=== PATIENT | male | born 1980 | race Caucasian/White ===

== ENCOUNTER 2023-07-15 20:29 | Emergency (ER) | payer SELFPAY ==
[2023-07-15 20:44] VITALS: BP 156/88
[2023-07-15 21:13] LABS: % Basophils 0.2 % (0-2); % Eosinophils 1.1 % (0-6); % Immature Granulocytes 0.4 % (0-0.5); % Lymphocytes 9.4 % (20.5-51.1); % Neutrophils 76.9 % (42.2-75.2); Absolute Eosinophils 0.1 10^3/uL (0-0.7); Absolute Lymphocytes 0.8 10^3/uL (1.2-3.4); Absolute Neutrophils 6.6 10^3/uL (1.4-6.5); Hematocrit 43.3 % (39.0-52.0); Hemoglobin 15.1 g/dL (13.0-18.0); Mean Corp Hgb Conc. 34.9 g/dL (33.0-37.0); Mean Corpuscular Hgb 30.6 pg (27.0-31.0); Mean Corpuscular Volume 87.8 fL (80.0-94.0); Nucleated Red Blood Cells % 0 % (-); Platelet Count 200 10^3/uL (130-400); Red Blood Cell Count 4.93 10^6/uL (4.70-6.10); Red Cell Dist. Width 11.7 % (11.5-14.5); White Blood Cell Count 8.6 10^3/uL (4.8-10.8)
[2023-07-15 21:31] LABS: ALT (SGPT) 39 U/L (0-50); AST (SGOT) 36 U/L (17-59); Albumin 4.7 g/dl (3.5-5.0); Alkaline Phosphatase 98 U/L (38-126); Blood Urea Nitrogen 23 mg/dl (9-20); Calcium 9.9 mg/dl (8.4-10.2); Carbon Dioxide 24 mmol/L (22-30); Chloride 101 mmol/L (98-107); Glucose 108 mg/dl (70-99); Sodium 137 mmol/L (135-145); Total Protein 7.9 g/dl (6.3-8.2); eGFR > 60.00
[2023-07-15 21:44] LABS: COVID-19 Antigen Negative (Negative)
[2023-07-15 22:59] VITALS: BP 133/80
[2023-07-15 23:00] VITALS: BP 131/74
[2023-07-15 23:05] LABS: Urine Albumin Negative (Neg - Trace); Urine Bilirubin Negative (Negative); Urine Character Clear (Clear); Urine Color Yellow; Urine Glucose Negative (Negative); Urine Ketone Negative (Negative); Urine Leukocyte Negative (Negative); Urine Nitrite Negative (Negative); Urine Occult Blood Negative (Negative); Urine Specific Gravity 1.015 (<1.030); Urine Urobilinogen 1+ (Neg - 1+)
--- NOTE | 2023-07-15 23:20 | ED.GENMED ---
History of Present Illness
General
Chief Complaint: Fever
Source: patient
Exam Limitations: none
Time Seen by Provider: 07/15/23 22:46
Travel History
Have you had any contact with someone who has COVID-19?: No
Do you have any symptoms of coronavirus? Fever > 100 degrees, chills, cough, shortness of breath, sore throat, loss of taste or smell, muscle aches, or headache?: No
History of Present Illness
History of Present Illness:
This is a 42 year old male that comes in with c/o fever. Sates that he had cut the grass and then he started with sneezing. States that he thought it was from doing the lawn. States that yesterday he then started with a cough and his boss told him
to go home and go to . States that he went to but they would not see him since he didn't have insurance. State that tonight he had fever with chills so he came here. States that he had SOB and some chest discomfort when he coughed. States that
he also has a headache. Denies any chest pain, abd pain, nausea, vomiting, diarrhea, dizziness, urinary burning.
Past History
Past History
ED Past Medical History: Other (Headaches, PNA)
ED Past Surgical History: None
Social History
Tobacco: Smoker
Alcohol: Occasional
Drug: None
Personal: Single
Living: with family
Employment: Employed
Family History
Family History: Other (Noncontributory)
Review of Systems
Review of Systems
All Other Systems: ROS reviewed and negative except as documented in HPI and ROS
Constitutional: Reports fever and chills
EENT: Reports no symptoms
Respiratory: Reports cough and trouble breathing
Cardiac: Denies chest pain
ABD/GI: Reports no symptoms; Denies abdominal pain, nausea, vomiting or diarrhea
: Reports no symptoms; Denies dysuria, frequency or urgency
Musculoskeletal: Reports no symptoms
Skin: Reports no symptoms
Neurological: Reports headache; Denies dizzy
Psychiatric: Reports no symptoms
Phy Exam
General Physical Exam
General Presentation: no apparent distress
General age: appears stated age
General Skin: warm and dry
General Habitus: normal
General Mental: alert
General Hydration: dry mucous membranes
ENT Exam
ENT Exam: TM's normal, pharynx normal and neck supple
Eye Exam
Eye Exam: EOMI
Cardiovascular Exam
Cardiovascular Exam: regular rate/rhythm, no edema, no murmur and normal peripheral pulses
Pulmonary Exam
Pulmonary Exam: lungs clear, no respiratory distress, no rales, chest non tender, no crackles, no rhonchi, no wheezing and other (Course cough noted)
Gastrointestinal Exam
Gastrointestinal Exam: normal bowel sounds, non tender, soft, no organomegaly, no pulsatile mass and non distended
Musculoskeletal Exam
Musculoskeletal Exam: full ROM and no edema
Skin Exam
Skin Exam: normal color, warm/dry, no rash and no petechia
Psychiatric Exam
Psychiatric Exam: normal mood/affect
Course
Orders/Labs/Results
Orders:
Orders
07/15/23 20:43
Electrocardiogram (*1) Urgent
Reason for Study: Other
Other Reason for Exam: Possible Sepsis
EKG- Treatment ONCE
07/15/23 20:46
Chest [CR Chest - 2 Views ] Urgent
Comment:
Reason For Exam: cough
07/15/23 21:04
COVID-19 Antigen Urgent
Source: Nasal Swab
Complete Blood Count/With Diff Urgent
Comprehensive Metabolic Panel Urgent
Lactic Acid Q4H
Comment: ON ICE, CANCEL 2ND ORDER IF FIRST LACTIC ACID LEVEL <2
Blood Culture Q30M
NEYDA Source: Blood/Venous
Specimen Description:
Comment: FROM 2 SEPARATE SITES
Blood Culture Q30M
NEYDA Source: Blood/Venous
Specimen Description:
Comment: FROM 2 SEPARATE SITES
INF RAPID [Influenza A+B Rapid Molecular] Urgent
NEYDA Source: Nasal Swab
Specimen Description:
07/15/23 22:55
Urinalysis Reflex To Culture Urgent
Date Specimen was Collected: 07/15/23
Time Specimen was Collected: 20:43
07/15/23 23:19
0.9% Sodium Chloride 1000 ml [Nss] 1,000 ml IV BOLUS
Acetaminophen [Tylenol] 1,000 mg PO NOW STA
07/16/23 00:22
Doxycycline [Vibramycin] 100 mg PO NOW STA
07/16/23 00:45
Lactic Acid Q4H
Comment: ON ICE, CANCEL 2ND ORDER IF FIRST LACTIC ACID LEVEL <2
Abnormal Lab Results
07/15/23
21:04
Absolute Neuts (auto) 6.6 H 10^3/uL
(1.4-6.5)
Absolute Lymphs (auto) 0.8 L 10^3/uL
(1.2-3.4)
Absolute Monos (auto) 1.0 H 10^3/uL
(0.1-0.6)
Neutrophils % 76.9 H %
(42.2-75.2)
Lymphocytes % 9.4 L %
(20.5-51.1)
Monocytes % 12.0 H %
(1.7-9.3)
BUN 23 H mg/dl
(9-20)
Glucose 108 H mg/dl
(70-99)
07/15/23 21:04
07/15/23 21:04
Dehydration. Glucose nonfasting. Lactic acid 2.0, COVID and Influenza negative, Urine negative for infection.
Vital Signs
Initial and Last Documented VS:
Initial Vital Signs
Temp Pulse Resp BP Pulse Ox
101.6 F H 106 22 156/88 98
07/15/23 20:44 07/15/23 20:44 07/15/23 20:44 07/15/23 20:44 07/15/23 20:44
Last Documented Vital Signs
Temp Pulse Resp BP Pulse Ox
101 F H 98 37 131/74 98
07/15/23 23:05 07/15/23 23:00 07/15/23 22:47 07/15/23 23:00 07/15/23 20:44
MDM/Problems Addressed
Differential Diagnosis Includes:
PNA, Viral illness
MDM/Problems Addressed:
This is a 42 year old male that comes in with c/o fever and cough. States that this started yesterday and his boss sent him home. Told him to go to and they would not see patient since he didn't have any insurance. States that he has a fever
tonight with a cough.
Will check labs. Give IV fluids and Tylenol for his fever. Will get chest x-ray.
BACK INTO SEE PATIENT. Explained that on the x-ray it appears that there is a right lower lobe Pneumonia. Will place patient on Doxycycline and have him follow up with the family doctor. Patient to increase his water intake to 8-8oz glasses daily.
Tylenol or Aleve as needed for any fever. Return with any concerns.
Chronic conditions affecting care:
NA
Acute Exacerbation and/or Progression of Chronic Illness:
NA
*Pulse Oximetry
Patient hypoxic: no
*EKG
Heart Rate: 93
Rate: normal
Rhythm: sinus
[place]: normal axis
Interval: normal interval
QRS Pattern: normal QRS
Ischemia: no ischemia
*Tow Feeder Interpretation
Rate: normal
Heart Rate: 93
Rhythm: sinus
*Critical Care Note
Total Time (30-74mins, 75-104mins- exclusive of procedures): Not Applicable
ED Attending Note
-
Portions of this chart may have been created with voice recognition software.� Occasional wrong word or��sound alike� substitutions may have occurred due to the inherent limitations of voice recognition software.
Discharge Plan
Departure
Patient Disposition: Home (Routine Discharge)
Date of Disposition: 07/16/23
Time of Disposition: 00:59
Patient with high blood pressure during this ER visit?: Yes
Condition: Good
Covid-19: Negative COVID-19
Discharge Problem:
Right lower lobe pneumonia
Instructions: Pneumonia, Adult (DC), Fever, Adult (DC), BLOOD PRESSURE
Prescriptions:
New
doxycycline hyclate 100 mg capsule
100 mg PO BID Qty: 19 0RF
No Action
epinephrine [EpiPen] 0.3 MG/0.3/SYRINGE auto-injector
0.3 mg IM .STAT PRN (Reason: allergy) Qty: 2 0RF
methylprednisolone [Medrol (John)] 4 MG tablets,dose pack
4 tab PO . DIRECT Qty: 1 0RF
diphenhydramine HCl [Banophen] 25 MG capsule
25 mg PO Q4HPRN PRN (Reason: rash) Qty: 20 0RF
Referrals:
Ifeoma Willson DO [Family Provider] -
Stand Alone Forms: Return to Work
Activity Restrictions/Additional Instructions:
As discussed, you have a lower lobe Pneumonia. Your blood work shows that you are slightly dehydrated. Please increase your water intake to 8-8oz glasses daily. You are negative for COVID and Influenza. Your urine is negative for infection. You
have been given your first dose of antibiotic here and a prescription has been sent to your Pharmacy. Please take as directed until finished. Follow up with the family doctor for recheck. Please use Tylenol of ibuprofen for fever. IF YOU HAVE
FEVER THAT IS NOT CONTROLLED, SHORTNESS OF BREATH, OR YOU HAVE ANY OTHER CONCERNS PLEASE RETURN TO THE EMERGENCY ROOM.
Interventions
Interventions:
*Risk Screen - Suicide Last Done: 07/15/23 20:44
*General Assessment Last Done: 07/15/23 20:44
*Neglect/Abuse Screening Last Done: 07/15/23 20:44
*ED COVID-19 Vaccine History Last Done: 07/15/23 20:44
Discharge Date and Time
Print Language: [place]
[2023-07-15] MEDS: TYLENOL 1000 MG PO (23:26)
[2023-07-15] MEDS: NSS 1000 IV (23:26)
[2023-07-16] MEDS: VIBRAMYCIN 100 MG PO (00:31)
== END 2023-07-16 01:31 | disposition home or self-care (01) ==
LOC: EMR 20:29
PROVIDERS: Emergency Medicine; EMERGENCY PHYSICIAN Student in an Organized Health Care Education/Training Program; FAMILY PHYSICIAN Family Medicine
DX: J18.9 Pneumonia, unspecified organism (principal); F17.200 Nicotine dependence, unspecified, uncomplicated; R03.0 Elevated blood-pressure reading, without diagnosis of hypertension; Z11.52 Encounter for screening for COVID-19
CPT/HCPCS: 99285; 96360; 71046; 80053; 81003; 83605; 85025; 87040; 87502; 87811; 93005

== ENCOUNTER 2023-07-20 18:56 | Emergency (ER) | payer SELFPAY ==
[2023-07-20 18:56] VITALS: BP 150/92
--- NOTE | 2023-07-20 19:26 | ED.GENMED ---
History of Present Illness
General
Chief Complaint: Medication Reaction
Source: patient
Exam Limitations: none
Time Seen by Provider: 07/20/23 19:09
Nursing documentation reviewed up to this point in time: agreed with
Travel History
Have you had any contact with someone who has COVID-19?: No
Do you have any symptoms of coronavirus? Fever > 100 degrees, chills, cough, shortness of breath, sore throat, loss of taste or smell, muscle aches, or headache?: No
History of Present Illness
History of Present Illness:
Patient started on doxycycline 5 days ago in ED after chest x-ray revealed pneumonia, presents to ED secondary to sudden onset of redness, swelling, and itching sensation noted over bilateral hands, forearm, and neck today. Denies rash in any other
areas. 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 Patient denies previous history of similar symptoms. Denies fever. Denies chills. Denies nausea or vomiting. Denies diarrhea. Denies loss of appetite. Patient states that his
symptoms which precipitated ED visit last week, i.e. cough, is continuing, but is no longer experiencing fever or chills.
Past History
Past History
ED Past Medical History: Other (Headaches, PNA)
ED Past Surgical History: None
Social History
Tobacco: Smoker
Alcohol: Occasional
Drug: None
Personal: Single
Living: with family
Employment: Employed
Family History
Family History: Other (Noncontributory)
Review of Systems
Review of Systems
Allergies reviewed?: Yes
All Other Systems: ROS reviewed and negative except as documented in HPI and ROS
Constitutional: Reports no symptoms; Denies fever
EENT: Reports no symptoms
Respiratory: Reports cough; Denies trouble breathing
Cardiac: Reports no symptoms
ABD/GI: Reports no symptoms
Musculoskeletal: Reports no symptoms
Skin: Reports itching and rash
Neurological: Reports no symptoms
Phy Exam
Physical Exam
Physical Exam:
Physical Exam
General: no apparent distress, not acutely ill. afebrile
Head: nc/at. eomi
Neck: supple. no meningeal signs. normal posterior pharynx
Heart: s1/s2 regular rate and rhythm, no murmur. equal radial pulses.
Lungs: no acute respiratory distress. clear bilaterally
Abdomen: normal bowel sounds. not tender.
Neuro: alert and oriented. no focal neurological deficits
Skin: erythema/swelling noted over b/l hands/forearm and posterior neck.
Psychiatric: well kept. interactive and cooperative
Extremities: no edema. no calf tenderness.
Course
Orders/Labs/Results
Orders:
Orders
07/20/23 19:25
Dexamethasone Pf [Decadron] 10 mg PO NOW STA
Vital Signs
Initial and Last Documented VS:
Initial Vital Signs
Temp Pulse Resp BP Pulse Ox
97.8 F 76 22 150/92 98
07/20/23 18:56 07/20/23 18:56 07/20/23 18:56 07/20/23 18:56 07/20/23 18:56
Last Documented Vital Signs
Temp Pulse Resp BP Pulse Ox
97.8 F 76 22 150/92 98
07/20/23 18:56 07/20/23 18:56 07/20/23 18:56 07/20/23 18:56 07/20/23 18:56
MDM/Problems Addressed
MDM/Problems Addressed:
History and exam consistent with likely phototoxicity with exposure to sunlight while using doxycycline. Patient's rash only noted over exposed surface. Any areas that are covered by clothing is not affected. Otherwise, patient is afebrile,
hemodynamically stable, and is nontoxic-appearing. As patient due to his occupation will continue to work outdoors, doxycycline will be discontinued and Decadron will be provided. Advised staying indoors for the next 24 hours to make sure that his
symptoms are improving prior to returning to work, along with starting new medication, i.e. Augmentin, after 24 hours.
*Critical Care Note
Total Time (30-74mins, 75-104mins- exclusive of procedures): Not Applicable
ED Attending Note
-
Portions of this chart may have been created with voice recognition software.� Occasional wrong word or��sound alike� substitutions may have occurred due to the inherent limitations of voice recognition software.
Discharge Plan
Departure
Patient Disposition: Home (Routine Discharge)
Date of Disposition: 07/20/23
Time of Disposition: 19:33
Patient with high blood pressure during this ER visit?: Yes
Condition: Good
Discharge Problem:
Phototoxicity due to sun
Instructions: Side effects from medicines
Prescriptions:
New
amoxicillin-pot clavulanate 875-125 mg tablet
1 tab PO Q12H Qty: 14 0RF
dexamethasone 2 mg tablet
10 mg PO DAILY Qty: 5 0RF
No Action
epinephrine [EpiPen] 0.3 MG/0.3/SYRINGE auto-injector
0.3 mg IM .STAT PRN (Reason: allergy) Qty: 2 0RF
methylprednisolone [Medrol (John)] 4 MG tablets,dose pack
4 tab PO . DIRECT Qty: 1 0RF
diphenhydramine HCl [Banophen] 25 MG capsule
25 mg PO Q4HPRN PRN (Reason: rash) Qty: 20 0RF
doxycycline hyclate 100 mg capsule
100 mg PO BID Qty: 19 0RF
Stand Alone Forms: Return to Work
Activity Restrictions/Additional Instructions:
As discussed, please follow-up with your primary care physician for any further concerns. Please discontinue use of doxycycline and avoid sun, as combination is what has caused you to to experience rash today. You may take 1 additional dose of
Decadron, if your symptoms persist. Please start new antibiotics on morning. Your prescriptions have been sent electronically to [facility] in [place].
Interventions
Interventions:
*Risk Screen - Suicide Last Done: 07/20/23 18:56
*Neglect/Abuse Screening Last Done: 07/20/23 18:56
*Nursing Disposition Last Done: 07/20/23 19:41
ED-Skin Assessment Last Done: 07/20/23 19:38
Discharge Date and Time
Discharge Date/Time: 07/20/23 19:41
Print Language: [place]ST[place]
[2023-07-20] MEDS: DECADRON 10 MG PO (19:33)
== END 2023-07-20 19:41 | disposition home or self-care (01) ==
LOC: EMR 18:56
PROVIDERS: EMERGENCY PHYSICIAN Emergency Medicine; FAMILY PHYSICIAN Family Medicine
DX: L56.8 Other specified acute skin changes due to ultraviolet radiation (principal); F17.200 Nicotine dependence, unspecified, uncomplicated
CPT/HCPCS: 99283